=== PATIENT | male | born 1985 | race Two or more races ===

== ENCOUNTER → 2025-04-26 11:19 | Outpatient (REF) | payer OTHER, SELFPAY ==
[2025-04-28 13:31] LABS: Quantiferon Mitogen minus NIL 9.92 IU/mL; Quantiferon NIL 0.08 IU/mL; Quantiferon Plus TB2 minus NIL 0.01 IU/mL (<=0.34); Quantiferon TB Gold Plus Negative (Negative)
== END ==
LOC: OHS 11:19
PROVIDERS: ATTENDING PHYSICIAN Nurse Practitioner Family
DX: Z23 Encounter for immunization (principal)
CPT/HCPCS: 36415; 86480